=== PATIENT | female | born 1965 | race Caucasian/White ===

== ENCOUNTER 2017-11-02 07:58 | Emergency (ER) | END 2017-11-02 11:56 | disposition home or self-care (01) ==

== ENCOUNTER 2018-01-14 04:52 | Emergency (ER) | END 2018-01-14 13:35 | disposition short-term general hospital (02) ==

== ENCOUNTER 2018-07-15 13:59 | Inpatient (IN) | payer OTHER ==
[~2018-07-15] VITALS: Ht 170.2 cm; Wt 152.5 kg
[~2018-07-15 13:59] MED LIST: ALBU8.5H8 INH; AMLO-147 PO; AZIT250T13 PO; BENZ-6 PO; CARI350T29 PO; LEVO50TA7 PO; LISI1TAB6 PO; LORA1TAB PO; METF-849 PO; [UNRECOGNIZED DRUG - CODE] PO
[2018-07-15] MEDS ORDERED: SOD CHLORIDE 0.9% 1,000 ML IV STA (14:05)
[2018-07-15] MEDS ORDERED: DILTIAZEM 30 MG TAB PO ONE (14:30)
[2018-07-15] MEDS ORDERED: DILTIAZEM 25 MG INJ IV ONE (14:30)
[2018-07-15] MEDS ORDERED: LORA1TAB PO (15:19)
[2018-07-15] MEDS ORDERED: LEVO50TA7 PO (15:19)
[2018-07-15] MEDS ORDERED: CARI350T29 PO (15:20)
[2018-07-15] MEDS ORDERED: TRAM50TA PO (15:20)
[2018-07-15] MEDS ORDERED: METF500T24 PO (15:21)
[2018-07-15] MEDS ORDERED: AMLO-147 PO (15:21)
[2018-07-15] MEDS ORDERED: LISI1TAB6 PO (15:22)
[2018-07-15] MEDS ORDERED: RANI300T PO (15:23)
[2018-07-15] MEDS ORDERED: HYDR-4012 PO (15:24)
[2018-07-15] MEDS ORDERED: IBUP-1542 PO (15:24)
[2018-07-15] MEDS ORDERED: MAGNESIUM SULFATE 2 GM/50 ML 50 ML IVPB ONE (16:30)
[2018-07-15] MEDS ORDERED: POTASSIUM CHLORIDE (SR) 20 MEQ TAB PO STA (17:39)
--- NOTE | 2018-07-15 18:05 | ERD ---
ER Documentation Chief Complaint Chief Complaint biba, pt c/o flu like s/sx; EMS noted new onset afib on monitor- denies CP HPI Patient is a 53-year-old female with diabetes and high blood pressure who presents with diarrhea. The patient was brought in by ambulance. She has had a diarrhea for about 1 week. She has had falls. She has new onset atrial fibrillation by paramedics. She is supposedly taking Soma. Blood sugar was 180. She feels like she lost her balance which is why she fell. ROS All systems reviewed and are negative except as per history of present illness. Medications Home Meds Reported Medications Hydrocodone/Acetaminophen ([place] 7.5-325 Tablet) 1 Each Tablet, 1 EACH PO QID PRN for NEEDED, TAB 07/15/18 Ibuprofen* (Ibuprofen*) 600 Mg Tablet, 600 MG PO Q6H, TAB 07/15/18 Ranitidine Hcl* (Ranitidine Hcl*) 300 Mg Tablet, 300 MG PO HS, #30 TAB 07/15/18 Lisinopril/Hydrochlorothiazide (Lisinopril-Hctz 20-12.5 mg Tab) 1 Each Tablet, 1 EACH PO BID, TAB 07/15/18 Amlodipine Besylate* (Amlodipine Besylate*) 10 Mg Tablet, 10 MG PO DAILY, #30 TAB 07/15/18 Metformin Hcl* (Metformin Hcl*) 500 Mg Tablet, 500 MG PO WITH MEALS BEDTIME, #90 TAB 07/15/18 Tramadol Hcl* (Ultram*) 50 Mg Tablet, 50 MG PO Q6H PRN for PAIN, TAB 07/15/18 Carisoprodol* (Carisoprodol*) 350 Mg Tablet, 350 MG PO QID PRN for MUSCLE SPASM S, TAB 07/15/18 Lorazepam* (Lorazepam*) 1 Mg Tablet, 1 MG PO BID PRN for ANXIETY, #30 TAB 07/15/18 Levothyroxine Sodium* (Levothyroxine Sodium*) 50 Mcg Tablet, 50 MCG PO BEFORE BREAKFAST, #30 TAB 07/15/18 Discontinued Reported Medications Carisoprodol* (Carisoprodol*) 350 Mg Tablet, 350 MG PO Q8 PRN for MUSCLE SPASMS, TAB 11/02/17 Hydrocodone/Ibuprofen (Hydrocodone-Ibuprofen 7.5-200) 1 Each Tablet, 1 TAB PO Q6 PRN for SEVERE PAIN LEVEL 7-10 11/02/17 Lorazepam* (Lorazepam*) 1 Mg Tablet, 1 MG PO BID PRN for ANXIETY, #30 TAB 11/02/17 Metformin* (Glucophage*) 500 Mg Tab, 500 MG PO WITH MEALS, #90 TAB 11/02/17 Levothyroxine Sodium* (Levothyroxine Sodium*) 50 Mcg Tablet, 50 MCG PO BEFORE BREAKFAST, #30 TAB 11/02/17 Lisinopril/Hydrochlorothiazide (Lisinopril-Hctz 20-12.5 mg Tab) 1 Each Tablet, 2 TAB PO DAILY 11/02/17 Amlodipine Besylate* (Amlodipine Besylate*) 10 Mg Tablet, 10 MG PO DAILY, #30 TAB 11/02/17 Discontinued Scripts Azithromycin* (Azithromycin*) 250 Mg Tablet, 250 MG PO DAILY, #4 TAB Prov:SHARA DOWNS MD 11/02/17 Albuterol Sulfate* (Proair HFA*) 8.5 Gm Hfa.aer.ad, 2 PUFF INH Q6H PRN for WHEEZING AND SOB, #1 INHALER Prov:SHARA DONWS MD 11/02/17 Benzonatate* (Tessalon Perle*) 100 Mg Capsule, 100 MG PO TID PRN for COUGH, #12 CAP Prov:SHARA DOWNS MD 11/02/17 Allergies Allergies: Coded Allergies: No Known Allergies (Unverified Allergy, Unknown, 07/15/18) PMhx/Soc History of Surgery: Yes (Rt wrist, Rt elbow) Anesthesia Reaction: No Hx Neurological Disorder: No (chronic back pain, ) Hx Respiratory Disorders: Yes (bronchitis) Hx Cardiac Disorders: Yes (HTN) Hx Psychiatric Problems: No (anxiety) Hx Miscellaneous Medical Probl: Yes (DM, Hypothyroidism, old back fracture, morbid obese, muscle spasms) Hx Alcohol Use: Yes (Occasionally) Hx Substance Use: No Hx Tobacco Use: No Smoking Status: Never smoker FmHx Family History: diabetes Physical Exam Vitals Vital Signs Date Temp Pulse Resp B/P (MAP) Pulse Ox O2 O2 Flow FiO2 Time Delivery Rate 07/15/18 93 22 144/107 99 Room Air 17:00 (119) 07/15/18 82 15 132/72 99 Room Air 16:30 (92) 07/15/18 84 17 125/88 99 Room Air 16:00 (100) 07/15/18 95 17 103/61 99 Room Air 15:36 (75) 07/15/18 97 17 173/108 99 Room Air 15:00 (129) 07/15/18 Nasal 2 14:38 Cannula 07/15/18 101 20 135/108 99 Room Air 14:32 (117) 07/15/18 97.9 108 24 140/123 98 14:14 (129) Physical Exam Const: No acute distress Head: Atraumatic Eyes: Normal Conjunctiva ENT: Normal External Ears, Nose and Mouth. Neck: Full range of motion. No meningismus. Resp: Clear to auscultation bilaterally Cardio: Regular rate and rhythm, no murmurs Abd: Soft, non tender, non distended. Normal bowel sounds Skin: Abrasions to knees Back: No midline or flank tenderness Ext: No cyanosis, or edema Neur: Awake but confused, moving all 4 extremities Result Diagram: 07/15/18 1445 07/15/18 1445 Results 24 hrs Laboratory Tests Test 07/15/18 14:35 07/15/18 14:45 Urine Opiates Screen Positive Urine Barbiturates Negative Urine Amphetamines Screen Negative Urine Benzodiazepines Screen Negative Urine Cocaine Screen Negative Urine Cannabinoids Negative White Blood Count 19.5 10^3/ul Red Blood Count 4.42 10^6/ul Hemoglobin 13.0 g/dl Hematocrit 34.2 % Mean Corpuscular Volume 77.4 fl Mean Corpuscular Hemoglobin 29.4 pg Mean Corpuscular Hemoglobin Concent 38.0 g/dl Red Cell Distribution Width 12.3 % Platelet Count 416 10^3/UL Mean Platelet Volume 9.4 fl Immature Granulocytes % 1.200 % Neutrophils % % Segmented Neutrophils % (Manual) 83 % Band Neutrophils % (Manual) 10 % Lymphocytes % % Lymphocytes % (Manual) 2 % Reactive Lymphocytes % (Manual) 2 % Monocytes % % Monocytes % (Manual) 3 % Eosinophils % % Basophils % % Nucleated Red Blood Cells % 0.1 /100WBC Immature Granulocytes # 0.240 10^3/ul Neutrophils # 10^3/ul Neutrophils # (Manual) 16.6 10^3/ul Band Neutrophils # 1.9 10^3/ul Lymphocytes (Manual) 0.3 10^3/ul Lymphocytes # 10^3/ul Reactive Lymphocytes # 0.3 10^3/ul Monocytes # 10^3/ul Monocytes # (Manual) 0.5 10^3/ul Eosinophils # 10^3/ul Basophils # 10^3/ul Nucleated Red Blood Cells # 10^3/ul Platelet Estimate NORMAL Prothrombin Time 13.2 Sec Prothrombin Time Ratio 1.0 INR International Normalized Ratio 0.99 Activated Partial Thromboplast Time 29.2 Sec Sodium Level 100 mmol/L Potassium Level 3.4 mmol/L Chloride Level 61 mmol/L Carbon Dioxide Level 21 mmol/L Anion Gap 18 Blood Urea Nitrogen 10 mg/dl Creatinine 0.57 mg/dl Est Glomerular Filtrat Rate mL/min > 60 mL/min Glucose Level 178 mg/dl Calcium Level 8.0 mg/dl Magnesium Level 0.7 mg/dl Total Bilirubin 0.4 mg/dl Direct Bilirubin 0.00 mg/dl Indirect Bilirubin 0.4 mg/dl Aspartate Amino Transf (AST/SGOT) 133 IU/L Alanine Aminotransferase (ALT/SGPT) 49 IU/L Alkaline Phosphatase 78 IU/L Troponin I < 0.012 ng/ml Total Protein 6.7 g/dl Albumin 3.9 g/dl Globulin 2.80 g/dl Albumin/Globulin Ratio 1.39 Thyroid Stimulating Hormone (TSH) 0.844 MIU/L Free Thyroxine 1.64 ng/dl Ethyl Alcohol Level < 10.0 mg/dl Current Medications Medications Dose Sig/Mildred Start Time Status Last (Trade) Ordered Route PRN Stop Time Admin Dose Reason Admin Sodium 1,000 ml @ Q1H STAT 07/15/18 DC 07/15/18 Chloride 1,000 mls/hr IV 14:05 14:23 07/15/18 15:04 Diltiazem 20 mg ONCE ONCE 07/15/18 DC 07/15/18 HCl IV 14:30 14:25 (Cardizem Iv) 07/15/18 14:31 Diltiazem 30 mg ONCE ONCE 07/15/18 DC 07/15/18 HCl PO 14:30 14:22 (Cardizem) 07/15/18 14:31 Magnesium 50 ml @ 25 ONCE ONCE 07/15/18 07/15/18 Sulfate mls/hr IVPB 16:30 16:19 07/15/18 18:29 Potassium 20 meq ONCE STAT 07/15/18 DC Chloride PO 17:39 (Klor-Con 20) 07/15/18 17:43 Procedures/MDM CT brain pending radiology read at this time. EKG read by me: Rate/Rhythm: Atrial fibrillation Intervals: Normal Impression: Atrial fibrillation at a regular rate Patient is a 53-year-old female who presents with new onset atrial fibrillation. On routine laboratory studies the patient was found to have severe hyponatremia at 100. She has low magnesium at 0.7 as well. She was given normal saline 1 L bolus prior to realizing the hyponatremia but we will fluid restrict from this point forward to avoid central pontine myelinolysis. She was given 2 g of magnesium IV. She will be admitted to the care of the panel team to the intensive care unit. Dr. Moctezuma from nephrology has come to see her as well. Critical Care: Time: 35 minutes excluding all billable proc edures. Treatments/Evaluations: Close monitoring and treatment of unstable vital signs, cardiorespiratory, and neurologic status, while maintaining tight balance of fluid, respiratory, and cardiac interventions. Departure Diagnosis: Primary Impression: Hyponatremia Additional Impressions: Altered mental status Altered mental status type: unspecified Qualified Codes: R41.82 - Altered mental status, unspecified Falls Encounter type: initial encounter Qualified Codes: W19.XXXA - Unspecified fall, initial encounter Condition: Critical STARR ELDER MD Jul 15, 2018 18:05
[2018-07-15] MEDS ORDERED: HYDROCODONE/APAP (5/325) TAB PO PRN (19:00)
[2018-07-15] MEDS ORDERED: ONDANSETRON 4 MG INJ IV PRN (19:00)
[2018-07-15] MEDS ORDERED: hydrALAzine 20 MG INJ IV PRN (19:00)
[2018-07-15] MEDS ORDERED: DOCUSATE SODIUM 100 MG CAP PO PRN (19:00)
[2018-07-15] MEDS ORDERED: DILTIAZEM-D5W 125MG/125ML DRIP 125 ML IV SCH (19:00)
[2018-07-15] MEDS ORDERED: MAGNESIUM HYDROXIDE 30ML CUP PO PRN (19:00)
[2018-07-15] MEDS ORDERED: morphine 2 MG INJ IV PRN (19:00)
[2018-07-15] MEDS ORDERED: NITROGLYCERIN (SL) 0.4 MG TAB SL PRN (19:00)
[2018-07-15] MEDS ORDERED: ALBUTEROL/IPRATROPIUM (NEB) 3 ML AMP HHN PRN (19:00)
[2018-07-15] MEDS ORDERED: NACL 0.9% 3 ML SYG IV SCH (19:00)
[2018-07-15 19:04] VITALS: PULSE 80
--- NOTE | 2018-07-15 19:10 | CONS ---
DATE OF ADMISSION: 07/15/2018 DATE OF CONSULTATION: TYPE OF CONSULTATION: Nephrology. REASON FOR CONSULTATION: Severe hyponatremia. PHYSICIAN REQUESTING CONSULTATION: Dr. Marsh HISTORY OF PRESENT ILLNESS: This is a 53-year-old female with a past medical history of hypertension , history of chronic pain secondary to arthritis, history of diabetes, history of anxiety disorder, h istory of hypothyroidism who presents to [facility] Emergency Room with lethargy, weakness. The patient states that over the past 1-1/2 weeks she has had severe nausea, vomiting with minimal o ral intake. The patient admits to fluid intake. The patient is also describing diarrhea during this time. The patient states she has had increased weakness and lethargy. As a result, she came into [facility] emergency room. Upon arrival, the patient was found to have AFib with rapid rate. The patient salazar d blood sugar of 180. The patient in the emergency room had laboratory data drawn which showed a sod ium of 100 mEq per liter, a white count of 19.5, and platelet count 416. Chest x-ray shows mild card iomegaly, clear lungs. A CT scan of the brain showed no acute intracranial hemorrhage and small-vess el ischemic changes and generalized volume loss. In the emergency room, the patient was given 1 lite r of normal saline. In terms of patient's renal history, the patient had no history of acute kidney injury. The patient has no prior history of hyponatremia. She understands it. The patient had previous laboratory data at [facility] that showed sodium levels ranging between 127-135 mEq per liter. As stated above, the patient during last week and a half has had poor oral p.o. intake, low solute intak e. Patient admits to drinking liquids. Admits to nausea, vomiting. Admits to diarrhea. PAST MEDICAL HISTORY: As stated above, history of hypertension, diabetes, history of chronic pain sy ndrome, history of arthritis, history of anxiety disorder, history of hypothyroidism. PAST SURGICAL HISTORY: Right wrist, right elbow. FAMILY HISTORY: No family history of kidney disease. SOCIAL HISTORY: Does not smoke. The medications have been reviewed. REVIEW OF SYSTEMS: A 14-point review of systems was conducted. Pertinent positives stated in the HP I, otherwise negative. PHYSICAL EXAMINATION: VITAL SIGNS: Blood pressure is 144/107, respirations 22, pulse 93, temperature 98.6. GENERAL: The patient is alert and oriented x3. HEENT: Head is normocephalic. The patient has noted erythema on bilateral cheeks. NECK: Supple. HEART: Tachycardic. LUNGS: Show diminished breath sounds at the base. ABDOMEN: Soft, obese. Mild tenderness to palpation. EXTREMITIES: Negative for clubbing, cyanosis. Nonpitting edema noted. DERMATOLOGIC: No rashes. NEUROLOGIC: Limited exam due to lack of cooperation, but no focal deficits. LABORATORY DATA: Shows white count 19.5, hemoglobin 13.0, platelet count 416. Sodium 139, potassium 3.4, pulse 61, BUN 10, creatinine 0.57, magnesium 0.7. CT scan, chest x-ray was reviewed. ASSESSMENT AND PLAN: This is a 53-year-old female who presents with: 1. Hyponatremia, possibly acute, possible chronic. Etiology may be multifactorial secondary to volu me depletion, polydipsia in conjunction with low solute intake, medications, i.e., hydrochlorothiazid e effect, angiotensin-converting enzyme inhibitor effect. The possibility of underlying syndrome of inappropriate antidiuretic hormone is also a consideration. Plan at this point would be to do a full evaluation. We will check urine sodium, urine osmolarity. Will check urine electrolytes, check ser um osmolarity, thyroid-stimulating hormone, a.m. cortisol level, uric acid level. The patient is sta tus post intravenous fluid 1 liter normal saline. Will repeat a stat basic metabolic profile. We wi ll monitor serial sodium levels q.2 hours to ensure correction no more than 8 to 12 mEq in a 24-hour period. If patient's sodium level should rapidly overcorrect, we will give the patient a course of D 5 water and DDAVP. We will monitor her closely. We will also correct underlying hypokalemia, which is a contributing factor to hyponatremia. 2. Hypokalemia. We will replete with potassium chloride. 3. Hypomagnesemia, replete with magnesium sulfate. 4. Lethargy, weakness, likely from hyponatremia. Continue to monitor. CT scan showed no evidence o f herniation. 5. Atrial fibrillation, possible new onset. Etiology may be due to electrolyte abnormalities, hypom agnesemia. Will correct underlying electrolyte abnormalities. Monitor closely. Check serial tropon ins. Check a two-dimensional echocardiogram. 6. Hypertension. Continue to monitor. Will defer any angiotensin-converting enzyme inhibitor or di uretics at this time. 7. Hypothyroidism. Continue Synthroid. 8. Chronic pain syndrome. Continue current pain regimen. 9. Anxiety disorder. Thank you, Dr. Marsh, for this interesting consult. It will be a pleasure to follow the patient with you throughout the hospital course. Dictated By: JULIUS LUCAS DO NR/NTS Conf#: [id number] DID#: [id number] CC: DMITRY MARSH;*EndCC*
--- NOTE | 2018-07-15 19:35 | HP ---
DATE OF ADMISSION: 07/15/2018 IDENTIFICATION: This is a 53-year-old female. CHIEF COMPLAINT: Vomiting, diarrhea, flu-like symptoms. HISTORY OF PRESENT ILLNESS: A 53-year-old female with past medical history of high blood pressure, diabetes, anxiety, low back pain, hip pain, asthma, hypertension who was brought in by EMS. The patient apparently had been having some diarrhea symptoms and vomiting off and on for the last week. She has also been feeling weak and had some falls. Some of the information is obtained from talking to the patient, but she is very lethargic, and the rest is obtained from the ER documentation. When she arrived, she was in atrial fibrillation with RVR and received diltiazem in the ER and her heart rate became rate controlled, but still in AFib. She also stated she has been taking Soma and lorazepam for the last 2 days, unknown dosages. She also has been taking ibuprofen and tramadol for chronic low back pain and hip pain. Denies any palpitations. No upper or lower GI bleeding. No chest pain or shortness of breath. She did say she ate some saltine crackers yesterday, but just became more weak. When she came in to the ER today, in addition to the AFib with RVR, she was also found with a very low sodium level of 100, and also magnesium level was very low at 0.7. She was given 1 liter normal saline IV fluid bolus and a call was made out to the renal doctor to come see the patient, given her severe hyponatremia. She was also found with elevated white blood cell count of 19.5. She also received magnesium supplementation in the ER x1 as well as potassium p.o. x1. PAST MEDICAL HISTORY: As above. ALLERGIES: NO KNOWN DRUG ALLERGIES. HOME MEDICATIONS: 1. Soma 350 mg q.i.d. p.r.n. 2. Amlodipine 10 mg daily. 3. Lisinopril/hydrochlorothiazide 1 tab b.i.d. 4. [place] 7.5/325 q.i.d. p.r.n. 5. Ibuprofen 600 mg q.6 hours. 6. Lorazepam 1 mg b.i.d. p.r.n. 7. Tramadol 50 mg q.6 p.r.n. 8. Ranitidine 300 mg at bedtime. 9. Levothyroxine 50 mcg every morning. 10. Metformin 500 mg twice a day. PAST SURGICAL HISTORY: She has had perirectal abscess surgery in the past and a tennis elbow surgery in the past. SOCIAL HISTORY: Former smoker. Denies any alcohol use or IV drug abuse. FAMILY HISTORY: Noncontributory. PHYSICAL EXAMINATION: VITAL SIGNS: Today, T-max 97.9, pulse 82 to 108, respirations 15 to 24, blood pressure is 103 to 173 systolic/61 to 108 diastolic, satting at 99% on 2 liters nasal cannula. GENERAL: The patient lying in bed, obese, quite lethargic, trying to answer questions when alert, in no acute distress. HEENT: Pupils equal, round, react to light. Extraocular muscles intact. NECK: Supple, no thyromegaly. LUNGS: Clear to auscultation bilaterally. CARDIOVASCULAR: S1, S2 heard. No rubs or gallops. ABDOMEN: Soft, nontender, nondistended. Normal bowel sounds. No rebound or guarding. MUSCULOSKELETAL: No lower extremity edema bilaterally. NEUROLOGIC: No focal deficits but lethargic. LABORATORIES: WBC 19.5, hemoglobin 13.0, hematocrit 34.2, platelets 416. Sodium 100, potassium 3.4, chloride 61, CO2 21, BUN 10, creatinine 0.57, glucose 178. LFTs appear to be normal. TSH is normal. Free T4 is normal. Positive opiates in her drug screen as well. Blood alcohol level appears to be a little bit elevated. Coags are normal. Head CT performed, shows no acute hemorrhages, infarcts or mass effect. Minimal chronic small-vessel ischemic changes, partially empty sella turcica, bilateral proptosis. Chest x-ray: Mild cardiomegaly. ASSESSMENT AND PLAN: 53-year-old female with recent use of Soma and lorazepam at home, coming in with diarrhea and vomiting symptoms with signs of severe hyponatremia, hypomagnesemia and atrial fibrillation with rapid ventricular response. 1. Severe hyponatremia along with low magnesium levels- Again, sodium is very low - 100. She did get 1 liter of normal saline intravenous fluid bolus in the ER. Pt had some diarrhea x 1 week prior to admit, but potassium in low nL range. Consider SIADH as well? - For now, we will admit the patient in the intensive care unit, hold home pain meds and anti-anxiety meds. - We will follow up renal recommendations- recommending checking sodium levels every 2 hours at least for the next 12 to 24 hours. We do not want to correct the sodium any faster than 10 to 12 mEq in the next 24 hours to avoid demyelination of the brain, so we will monitor her sodium levels very carefully with those very frequent basic metabolic profile blood checks. - follow up renal rec's regarding any further treatment, i.e., 3% normal saline or tolvaptan or other, - check TSH, A1c, lipid panel. - Consider physical therapy and occupational therapy consults as well. 2. Atrial fibrillation with rapid ventricular response. Again, she did receive diltiazem in the Emergency Room. For now, she appears to be rate controlled. - We will continue diltiazem drip to keep the heart rate less than 100. - We will get a cardiology consult. - Consider two-dimensional echocardiogram as well. - Replete the low magnesium per renal and cardiology recommendations. 3. History of hypertension. Blood pressure appears to be stable. - Continue to monitor for now. - Continue Norvasc and hydralazine p.r.n. 4. History of anxiety- We are holding her home Soma medicine, ibuprofen, p.o. lorazepam and Ultram. - Again, low-dose Ativan as needed 5. History of probable hypothyroidism. Thyroid panel appears to be normal. - Continue Synthroid at current dose. 6. History of low back pain and hip pain. - Again, physical therapy and occupational therapy consults. - Cautious use of pain medications at this time. 7. Gastrointestinal prophylaxis: H2 jacque. 8. Deep venous thrombosis prophylaxis: sequential compression devices for now. 9. History of asthma. Daryl p.r.n. Dictated By: DMITRY BENNETT/ALEX Conf#: [id number] DID#: [id number] DMOINIC
[2018-07-15 20:00] VITALS: BP 137/80; PULSE 102; PULSE 89; RESP 18; Ht 170.2 cm; Wt 152.5 kg
[2018-07-15] MEDS: INSULIN ASPART [NOVOLOG] 3 ML PEN SC SCH (20:57)
[2018-07-15 21:00] VITALS: BP 129/69; PULSE 91; RESP 23
[2018-07-15] MEDS ORDERED: NACL 3% 500 ML IV SCH (21:00)
[2018-07-15] MEDS: RANITIDINE 150 MG TAB PO SCH (21:02)
[2018-07-15] MEDS ORDERED: HYDROCODONE/APAP (5/325) TAB PO ONE (21:30)
[2018-07-15 22:00] VITALS: BP 124/75; PULSE 79; RESP 17
[2018-07-15 23:00] VITALS: BP 140/89; PULSE 90; RESP 19
[2018-07-16] VITALS (30 sets, daily range): BP systolic 93–174; BP diastolic 56–117; PULSE 78–104; RESP 13–35
[2018-07-16] MEDS: LORAZEPAM 2 MG INJ IV PRN ×2 (00:17→20:59)
[2018-07-16] MEDS: INSULIN ASPART [NOVOLOG] 3 ML PEN SC SCH ×6 (01:40→21:00)
[2018-07-16] MEDS ORDERED: ACCU-CHEK XX SCH (02:00)
[2018-07-16] MEDS ORDERED: morphine 4 MG/ML VIAL IV ONE (02:13)
[2018-07-16] MEDS ORDERED: POTASSIUM CHLORIDE 50 ML IVPB SCH (02:30)
[2018-07-16] MEDS: POTASSIUM CHLORIDE 100 ML IVPB SCH ×2 (03:45→06:40)
[2018-07-16] MEDS ORDERED: HYDROmorphONE 0.5 MG/0.5 ML SYG IV ONE (04:58)
[2018-07-16] MEDS ORDERED: LEVOTHYROXINE 50 MCG TAB PO SCH (07:00)
[2018-07-16] MEDS ORDERED: POTASSIUM CHLORIDE (SR) 20 MEQ TAB PO STA (07:37)
[2018-07-16] MEDS ORDERED: MAGNESIUM SULFATE 2 GM/50 ML 50 ML IVPB ONE (08:00)
--- NOTE | 2018-07-16 08:46 | PN ---
DATE: 07/16/2018 SUBJECTIVE: The patient overnight was placed on 3% sodium chloride. The patient had serial sodium l evels checked. Sodium levels have slowly been improving. The patient had no neurological symptoms. No hemoptysis, hematemesis or hematochezia. OBJECTIVE: VITAL SIGNS: Blood pressure is 108/90, respirations 17, pulse 93, temperature 97.2. I's and O's hav e been reviewed. HEENT: Head is normocephalic. NECK: Supple. HEART: Regular rate. LUNGS: Show diminished breath sounds at the base. ABDOMEN: Soft, nontender to palpation without rebound or guarding. EXTREMITIES: Negative for clubbing, cyanosis, no edema. DERMATOLOGIC: No rashes. MUSCULOSKELETAL: No joint effusion. NEUROLOGIC: No focal deficits. MEDICATIONS: Reviewed. LABORATORY DATA: Shows sodium 103, potassium 2.1, chloride 63, BUN is 9, creatinine 0.51, magnesium is 1.0, phosphorus is 8.3. Urinalysis shows a FENa less than 1%, a urine osmolarity 446 mOsm/L. ASSESSMENT AND PLAN: 1. Hypernatremia, possibly acute versus chronic. Etiology is likely multifactorial secondary to vol ume depletion, polydipsia in conjunction with low solute intake, medications, i.e. hydrochlorothiazid e effect, [place] inhibitor effect, and possible underlying SIADH due to chronic pain. The patient's uri ne studies did show a FENa less than 1% with suggestive prerenal etiology. However, the patient did not respond to IV fluids as initial sodium levels declined. The patient has been placed on 3% sodium chloride with a gradual correction of sodium levels. Plan is to continue 3% sodium chloride. Bala nue to monitor sodium levels q.2h. We will ensure correction no more than 8 to 12 mEq in a 24-hour p eriod. If the patient's sodium level should rapidly overcorrect, the patient will be given a course of D5 water and DDAVP. We will monitor closely. We will also correct underlying hypokalemia, which is a contributing factor to hypernatremia. 2. Hypokalemia. We will replete with potassium chloride. 3. Hypomagnesemia. We will replete with magnesium sulfate. 4. Lethargy, weakness, stable. Continue to monitor. CT scan was reviewed. 5. Atrial fibrillation. Etiology may be secondary to electrolyte abnormalities. Continue to correc t. Continue diltiazem drip as needed. 6. Hypertension. Continue to monitor blood pressure. 7. Hypothyroidism. Continue Synthroid. TSH level is within normal limits. 8. Chronic pain syndrome. Continue current pain regimen. 9. Anxiety disorder. Continue current medical management. Please note I spent over 30 minutes of critical care time with this patient. Dictated By: JULIUS LUCAS DO NR/NTS Conf#: [id number] DID#: [id number] CC: DMITRY MARSH; ELENA URENA MD;*EndCC*
[2018-07-16] MEDS: ACETAMINOPHEN 325 MG TAB PO PRN ×2 (08:47→14:49)
[2018-07-16] MEDS ORDERED: AMLODIPINE 10 MG TAB PO SCH (09:00)
--- NOTE | 2018-07-16 09:06 | PN ---
Date/Time of Note Date/Time of Note DATE: 07/16/18 TIME: 09:04 Assessment/Plan VTE Prophylaxis SCD applied (from Nsg): Yes Pharmacological prophylaxis: other Lines/Catheters IV Catheter Type (from Nrsg): Peripheral IV Assessment/Plan Hospital Course S: Patient more awake and alert today, asking for pain medications. Seen by [facility]ah anderson team yesterday. Did receive 3% normal saline last night for about 6-7 hours. Presently off of that now. Heart rate is rate controlled. Sodium is up to 105 today. Seen by renal team this morning. O: VS - see below PHYSICAL EXAMINATION: GENERAL: lying in bed, obese, more alert and less lethargic HEENT: Pupils equal, round, react to light. Extraocular muscles intact. NECK: Supple, no thyromegaly. LUNGS: Clear to auscultation bilaterally. CARDIOVASCULAR: S1, S2 heard. No rubs or gallops. ABDOMEN: Soft, nontender, nondistended. Normal bowel sounds. No rebound or guarding. MUSCULOSKELETAL: No lower extremity edema bilaterally. NEUROLOGIC: No focal deficits but lethargic. ASSESSMENT AND PLAN: 53-year-old female with recent use of Soma and lorazepam at home, coming in with diarrhea and vomiting symptoms with signs of severe hyponatremia, hypomagnesemia and atrial fibrillation with rapid ventricular response. 1. Severe hyponatremia along with low magnesium levels- Again, sodium on present was very low - 100. She did get 1 liter of normal saline intravenous fluid bolus in the ER. Sodium today is 105, again she did receive 3% normal saline for about 6 or 7 hours last night.per renal team, because is likely multifactorial secondary to volume depletion, polydipsia in conjunction with low solute intake, medications, i.e. hydrochlorothiazide effect, [place] inhibitor effect, and possible underlying SIADH due to chronic pain. Of note, pt had some diarrhea x 1 week prior to admit. -Continue care in the intensive care unit, hold home pain meds and anti- anxiety meds, follow-up renal recommendations and sodium levels every 2 hours (We do not want to correct the sodium any faster than 10 to 12 mEq in the next 24 hours to avoid demyelination of the brain) so we will monitor her sodium levels very carefully with those very frequent basic metabolic profile blood checks. - follow up renal rec's regarding any further treatment, including repeating low potassium magnesium levels today -Of note, her CK levels are also in the 4-5000 range, with signs of early rhabdo, continue any further IV fluids per renal recommendations -Follow-up TSH, A1c, lipid panel. - Consider physical therapy and occupational therapy consults as well. 2. Atrial fibrillation with rapid ventricular response - Again, she did receive diltiazem in the Emergency Room-and presently is rate controlled for now -Continue monitor heart rate for now -Follow-up recommendations from cardiology consult. -Follow-up two-dimensional echocardiogram as well. - Replete the low magnesium and potassium today per renal and cardiology recommendations. 3. History of hypertension. Blood pressure stable. - Continue to monitor for now. - Continue Norvasc and hydralazine p.r.n. 4. History of anxiety- We are holding her home Soma medicine, ibuprofen, p.o. lorazepam and Ultram. - Again, low-dose Ativan as needed 5. History of probable hypothyroidism. Thyroid panel appears to be normal. - Continue Synthroid at current dose. 6. History of low back pain and hip pain. - Again, physical therapy and occupational therapy consults. - Cautious use of pain medications at this time-we will apply icy hot medication patch for now as well as p.o. Tylenol as needed 7. Gastrointestinal prophylaxis: H2 jacque. 8. Deep venous thrombosis prophylaxis: sequential compression devices for now. 9. History of asthma. Daryl p.r.n. Critical care time spent in patient care today equals 45 minutes. Result Diagram: 07/16/18 0512 07/16/18 0800 Results 24hrs Laboratory Tests Test 07/15/18 14:35 07/15/18 14:45 07/15/18 19:05 07/15/18 19:07 Urine Opiates Screen Positive Urine Barbiturates Negative Urine Amphetamines Negative Screen Urine Negative Benzodiazepines Screen Urine Cocaine Screen Negative Urine Cannabinoids Negative White Blood Count 19.5 #H Red Blood Count 4.42 Hemoglobin 13.0 Hematocrit 34.2 L Mean Corpuscular 77.4 L Volume Mean Corpuscular 29.4 Hemoglobin Mean Corpuscular 38.0 H Hemoglobin Concent Red Cell 12.3 Distribution Width Platelet Count 416 #H Mean Platelet Volume 9.4 Immature 1.200 H Granulocytes % Neutrophils % Segmented 83 H Neutrophils % (Manual) Band Neutrophils % 10 H (Manual) Lymphocytes % Lymphocytes % 2 L (Manual) Reactive Lymphocytes 2 H % (Manual) Monocytes % Monocytes % (Manual) 3 Eosinophils % Basophils % Nucleated Red Blood 0.1 H Cells % Immature 0.240 H Granulocytes # Neutrophils # Neutrophils # 16.6 H (Manual) Band Neutrophils # 1.9 H Lymphocytes (Manual) 0.3 L Lymphocytes # Reactive Lymphocytes 0.3 H # Monocytes # Monocytes # (Manual) 0.5 Eosinophils # Basophils # Nucleated Red Blood Cells # Platelet Estimate NORMAL Prothrombin Time 13.2 Prothrombin Time 1.0 Ratio INR International 0.99 Normalized Ratio Activated 29.2 Partial Thromboplast Time Sodium Level 100 *L 99 *L Potassium Level 3.4 L 3.3 L Chloride Level 61 L 59 L Carbon Dioxide Level 21 22 Anion Gap 18 H 18 H Blood Urea Nitrogen 10 11 Creatinine 0.57 0.55 Est Glomerular > 60 > 60 Filtrat Rate mL/min Glucose Level 178 130 # Calcium Level 8.0 L 8.3 L Magnesium Level 0.7 *L Total Bilirubin 0.4 Direct Bilirubin 0.00 Indirect Bilirubin 0.4 Aspartate Amino 133 H Transf (AST/SGOT) Alanine 49 Aminotransferase (AL T/SGPT) Alkaline Phosphatase 78 Troponin I < 0.012 Total Protein 6.7 Albumin 3.9 Globulin 2.80 Albumin/Globulin 1.39 Ratio Thyroid Stimulating 0.844 Hormone (TSH) Free Thyroxine 1.64 1.50 Ethyl Alcohol Level < 10.0 H Hemoglobin A1c 6.1 H Osmolality 203 L Uric Acid 3.1 Test 07/15/18 20:57 07/15/18 20:58 07/15/18 22:13 07/15/18 23:05 Bedside Glucose 128 Sodium Level 101 *L 102 *L Potassium Level 3.3 L 3.3 L Chloride Level 61 L 61 L Carbon Dioxide Level 21 23 Anion Gap 19 H 18 H Blood Urea Nitrogen 10 10 Creatinine 0.51 0.56 Est Glomerular > 60 > 60 Filtrat Rate mL/min Glucose Level 119 107 Calcium Level 8.3 L 8.2 L Creatine Kinase 4624 H Creatine Kinase 2.7 Index Creatinine Kinase MB 124.00 H (Mass) Troponin I < 0.012 Urine Color YELLOW Urine Clarity CLEAR Urine pH 6.0 Urine Specific 1.014 Griffin Urine Ketones 1+ H Urine Nitrite NEGATIVE Urine Bilirubin NEGATIVE Urine Urobilinogen NEGATIVE Urine Leukocyte NEGATIVE Esterase Urine Microscopic 1 RBC Urine Microscopic 1 WBC Urine Hemoglobin 2+ H Urine Osmolality 446 Urine Random 62.27 Creatinine Urine Random Sodium 29 L Urine Glucose NEGATIVE Urine Total Protein 436.0 H Test 07/16/18 00:41 07/16/18 01:57 07/16/18 02:48 07/16/18 05:11 Sodium Level 101 *L 105 *L Potassium Level 3.0 L 3.0 L Chloride Level 60 L 64 L Carbon Dioxide Level 25 24 Anion Gap 16 H 17 H Blood Urea Nitrogen 10 9 Creatinine 0.56 0.53 Est Glomerular > 60 > 60 Filtrat Rate mL/min Glucose Level 98 94 Calcium Level 8.2 L 8.4 Bedside Glucose 113 103 Creatine Kinase 4798 H Creatine Kinase 2.7 Index Creatinine Kinase MB 131.00 H (Mass) Troponin I < 0.012 Test 07/16/18 05:12 07/16/18 05:13 07/16/18 08:00 07/16/18 08:53 White Blood Count 14.9 #H Red Blood Count 4.15 L Hemoglobin 12.1 Hematocrit 32.2 L Mean Corpuscular 77.4 L Volume Mean Corpuscular 29.1 Hemoglobin Mean Corpuscular 37.6 H Hemoglobin Concent Red Cell 12.2 Distribution Width Platelet Count 386 Mean Platelet Volume 9.0 Immature 0.900 H Granulocytes % Neutrophils % 87.3 H Lymphocytes % 5.4 L Monocytes % 5.4 Eosinophils % 0.8 Basophils % 0.2 Nucleated Red Blood 0.0 Cells % Immature 0.140 H Granulocytes # Neutrophils # 13.0 H Lymphocytes # 0.8 Monocytes # 0.8 Eosinophils # 0.1 Basophils # 0.0 Nucleated Red Blood 0.0 Cells # Hemoglobin A1c 6.2 H Creatine Kinase 5167 H Sodium Level 103 *L 105 *L Potassium Level 3.1 L 3.0 L Chloride Level 63 L 65 L Carbon Dioxide Level 25 26 Anion Gap 15 H 14 H Blood Urea Nitrogen 9 8 Creatinine 0.51 0.52 Est Glomerular > 60 > 60 Filtrat Rate mL/min Glucose Level 82 106 Calcium Level 8.3 L 8.3 L Phosphorus Level 2.5 Magnesium Level 1.0 L Triglycerides Level 100 Cholesterol Level 185 LDL Cholesterol, 105 Calculated HDL Cholesterol 60 Cholesterol/HDL 3.0 Ratio Thyroid Stimulating 0.660 Hormone (TSH) Bedside Glucose 102 Exam/Review of Systems Exam Vitals Vital Signs Date Temp Pulse Resp B/P (MAP) Pulse Ox O2 O2 Flow FiO2 Time Delivery Rate 07/16/18 83 17 108/90 98 06:15 (96) 07/16/18 97.2 Room Air 06:00 07/16/18 4.0 05:49 Intake and Output 07/15/18 07/15/18 07/16/18 1515:00 23:00 07:00 IntakeIntake Total 190 ml 250.0 ml OutputOutput Total 195 ml 1115 ml BalanceBalance -5 ml -865.0 ml Results Results 24hrs Laboratory Tests Test 07/15/18 14:35 07/15/18 14:45 07/15/18 19:05 07/15/18 19:07 Urine Opiates Screen Positive Urine Barbiturates Negative Urine Amphetamines Negative Screen Urine Negative Benzodiazepines Screen Urine Cocaine Screen Negative Urine Cannabinoids Negative White Blood Count 19.5 #H Red Blood Count 4.42 Hemoglobin 13.0 Hematocrit 34.2 L Mean Corpuscular 77.4 L Volume Mean Corpuscular 29.4 Hemoglobin Mean Corpuscular 38.0 H Hemoglobin Concent Red Cell 12.3 Distribution Width Platelet Count 416 #H Mean Platelet Volume 9.4 Immature 1.200 H Granulocytes % Neutrophils % Segmented 83 H Neutrophils % (Manual) Band Neutrophils % 10 H (Manual) Lymphocytes % Lymphocytes % 2 L (Manual) Reactive Lymphocytes 2 H % (Manual) Monocytes % Monocytes % (Manual) 3 Eosinophils % Basophils % Nucleated Red Blood 0.1 H Cells % Immature 0.240 H Granulocytes # Neutrophils # Neutrophils # 16.6 H (Manual) Band Neutrophils # 1.9 H Lymphocytes (Manual) 0.3 L Lymphocytes # Reactive Lymphocytes 0.3 H # Monocytes # Monocytes # (Manual) 0.5 Eosinophils # Basophils # Nucleated Red Blood Cells # Platelet Estimate NORMAL Prothrombin Time 13.2 Prothrombin Time 1.0 Ratio INR International 0.99 Normalized Ratio Activated 29.2 Partial Thromboplast Time Sodium Level 100 *L 99 *L Potassium Level 3.4 L 3.3 L Chloride Level 61 L 59 L Carbon Dioxide Level 21 22 Anion Gap 18 H 18 H Blood Urea Nitrogen 10 11 Creatinine 0.57 0.55 Est Glomerular > 60 > 60 Filtrat Rate mL/min Glucose Level 178 130 # Calcium Level 8.0 L 8.3 L Magnesium Level 0.7 *L Total Bilirubin 0.4 Direct Bilirubin 0.00 Indirect Bilirubin 0.4 Aspartate Amino 133 H Transf (AST/SGOT) Alanine 49 Aminotransferase (AL T/SGPT) Alkaline Phosphatase 78 Troponin I < 0.012 Total Protein 6.7 Albumin 3.9 Globulin 2.80 Albumin/Globulin 1.39 Ratio Thyroid Stimulating 0.844 Hormone (TSH) Free Thyroxine 1.64 1.50 Ethyl Alcohol Level < 10.0 H Hemoglobin A1c 6.1 H Osmolality 203 L Uric Acid 3.1 Test 07/15/18 20:57 07/15/18 20:58 07/15/18 22:13 07/15/18 23:05 Bedside Glucose 128 Sodium Level 101 *L 102 *L Potassium Level 3.3 L 3.3 L Chloride Level 61 L 61 L Carbon Dioxide Level 21 23 Anion Gap 19 H 18 H Blood Urea Nitrogen 10 10 Creatinine 0.51 0.56 Est Glomerular > 60 > 60 Filtrat Rate mL/min Glucose Level 119 107 Calcium Level 8.3 L 8.2 L Creatine Kinase 4624 H Creatine Kinase 2.7 Index Creatinine Kinase MB 124.00 H (Mass) Troponin I < 0.012 Urine Color YELLOW Urine Clarity CLEAR Urine pH 6.0 Urine Specific 1.014 Griffin Urine Ketones 1+ H Urine Nitrite NEGATIVE Urine Bilirubin NEGATIVE Urine Urobilinogen NEGATIVE Urine Leukocyte NEGATIVE Esterase Urine Microscopic 1 RBC Urine Microscopic 1 WBC Urine Hemoglobin 2+ H Urine Osmolality 446 Urine Random 62.27 Creatinine Urine Random Sodium 29 L Urine Glucose NEGATIVE Urine Total Protein 436.0 H Test 07/16/18 00:41 07/16/18 01:57 07/16/18 02:48 07/16/18 05:11 Sodium Level 101 *L 105 *L Potassium Level 3.0 L 3.0 L Chloride Level 60 L 64 L Carbon Dioxide Level 25 24 Anion Gap 16 H 17 H Blood Urea Nitrogen 10 9 Creatinine 0.56 0.53 Est Glomerular > 60 > 60 Filtrat Rate mL/min Glucose Level 98 94 Calcium Level 8.2 L 8.4 Bedside Glucose 113 103 Creatine Kinase 4798 H Creatine Kinase 2.7 Index Creatinine Kinase MB 131.00 H (Mass) Troponin I < 0.012 Test 07/16/18 05:12 07/16/18 05:13 07/16/18 08:00 07/16/18 08:53 White Blood Count 14.9 #H Red Blood Count 4.15 L Hemoglobin 12.1 Hematocrit 32.2 L Mean Corpuscular 77.4 L Volume Mean Corpuscular 29.1 Hemoglobin Mean Corpuscular 37.6 H Hemoglobin Concent Red Cell 12.2 Distribution Width Platelet Count 386 Mean Platelet Volume 9.0 Immature 0.900 H Granulocytes % Neutrophils % 87.3 H Lymphocytes % 5.4 L Monocytes % 5.4 Eosinophils % 0.8 Basophils % 0.2 Nucleated Red Blood 0.0 Cells % Immature 0.140 H Granulocytes # Neutrophils # 13.0 H Lymphocytes # 0.8 Monocytes # 0.8 Eosinophils # 0.1 Basophils # 0.0 Nucleated Red Blood 0.0 Cells # Hemoglobin A1c 6.2 H Creatine Kinase 5167 H Sodium Level 103 *L 105 *L Potassium Level 3.1 L 3.0 L Chloride Level 63 L 65 L Carbon Dioxide Level 25 26 Anion Gap 15 H 14 H Blood Urea Nitrogen 9 8 Creatinine 0.51 0.52 Est Glomerular > 60 > 60 Filtrat Rate mL/min Glucose Level 82 106 Calcium Level 8.3 L 8.3 L Phosphorus Level 2.5 Magnesium Level 1.0 L Triglycerides Level 100 Cholesterol Level 185 LDL Cholesterol, 105 Calculated HDL Cholesterol 60 Cholesterol/HDL 3.0 Ratio Thyroid Stimulating 0.660 Hormone (TSH) Bedside Glucose 102 Medications Medication Current Medications IV Flush (NS 3 ml) 3 ml PER PROTOCOL IV ; Start 07/15/18 at 19:00 Ondansetron HCl (Zofran Inj) 4 mg Q6H PRN IV NAUSEA/VOMITING; Start 07/15/18 at 19:00 Acetaminophen (Tylenol Tab) 650 mg Q6H PRN PO .PAIN 1-3 OR TEMP Last administered on 07/16/18at 08:47; Admin Dose 650 MG; Start 07/15/18 at 19:00 Docusate Sodium (Colace) 100 mg Q12H PRN PO .CONSTIPATION; Start 07/15/18 at 19:00 Magnesium Hydroxide (Milk Of Mag) 30 ml DAILY PRN PO .CONSTIPATION; Start 07/15/18 at 19:00 Lorazepam (Ativan) 0.5 mg Q6H PRN IV ANXIETY Last administered on 07/16/18at 00:17; Admin Dose 0.5 MG; Start 07/15/18 at 19:00 Albuterol/ Ipratropium (Duoneb) 3 ml Q4H RESP THERAPY PRN HHN SHORTNESS OF BREATH; Start 07/15/18 at 19:00 Hydralazine HCl (Apresoline) 10 mg Q6H PRN IV ELEVATED BLOOD PRESSURE; Start 07/15/18 at 19:00 Nitroglycerin (Nitroglycerin (Sl Tab) 0.4 Mg) 1 tab Q5M PRN SL ANGINA; Start 07/15/18 at 19:00 Diagnostic Test (Pha) (Accu-Chek) 1 ea 02 XX Last administered on 07/16/18at 02:14; Admin Dose 1 EA; Start 07/16/18 at 02:00 Insulin Aspart (Novolog Insulin Pen) NOVOLOG *MILD* ALGORI... Q4 SC ; Start 07/15/18 at 21:00 Amlodipine Besylate (Norvasc) 10 mg DAILY PO Last administered on 07/16/18at 08:47; Admin Dose 10 MG; Start 07/16/18 at 09:00 Levothyroxine Sodium (Synthroid) 50 mcg BEFORE BREAKFAST PO Last administered on 07/16/18at 06:40; Admin Dose 50 MCG; Start 07/16/18 at 07:00 Ranitidine HCl (Zantac) 300 mg HS PO Last administered on 07/15/18at 21:02; Admin Dose 300 MG; Start 07/15/18 at 21:00 Diltiazem HCl 125 ml @ 5 mls/hr TITRATE IV Last administered on 07/16/18at 04:26; Admin Dose 5 MLS/HR; Start 07/15/18 at 19:00 Magnesium Sulfate 50 ml @ 25 mls/hr ONCE ONCE IVPB Last administered on 07/16/18at 08:48; Admin Dose 25 MLS/HR; Start 07/16/18 at 08:00; Stop 07/16/18 at 09:59 DMITRY MARSH 15, 2019 09:06
[2018-07-16] MEDS: MENTHOL/METH SALICYLATE 30 GM OINT TOP SCH ×4 (10:18→21:23)
[2018-07-16] MEDS ORDERED: NACL 3% 500 ML IV SCH (12:00)
[2018-07-16] MEDS ORDERED: POTASSIUM CHLORIDE 100 ML IVPB ONE ×2 (13:00→15:30)
--- NOTE | 2018-07-16 17:05 | PDOCDIS ---
Discharge Instructions CONDITION [id number] Patient Condition: [id number] DMITRY Hollis Jul 16, 2018 17:05
--- NOTE | 2018-07-16 17:15 | DS ---
Date/Time of Note Date/Time of Note DATE: 07/16/18 TIME: 17:07 Discharge Summary Admission/Discharge Info Admit Date/Time Jul 15, 2018 at 16:10 Discharge Date/Time Discharge Diagnosis 1. Severe hyponatremia along with low magnesium levels- Again, sodium on pr esent was very low - 100. She did get 1 liter of normal saline intravenous fluid bolus in the ER. Sodium today is 105, again she did receive 3% normal saline for about 6 or 7 hours last night.per renal team, because is likely multifactorial secondary to volume depletion, polydipsia in conjunction with low solute intake, medications, i.e. hydrochlorothiazide effect, [place] inhibitor effect, and possible underlying SIADH due to chronic pain. Of note, pt had some diarrhea x 1 week prior to admit. -Continue care in the intensive care unit, hold home pain meds and anti- anxiety meds, follow-up renal recommendations and sodium levels every 2 hours (We do not want to correct the sodium any faster than 10 to 12 mEq in the next 24 hours to avoid demyelination of the brain) so we will monitor her sodium levels very carefully with those very frequent basic metabolic profile blood checks. - follow up renal rec's regarding any further treatment, including repeating low potassium magnesium levels today -Of note, her CK levels are also in the 4-5000 range, with signs of early rhabdo, continue any further IV fluids per renal recommendations -Follow-up TSH, A1c, lipid panel. - Consider physical therapy and occupational therapy consults as well. 2. Atrial fibrillation with rapid ventricular response - Again, she did receive diltiazem in the Emergency Room-and presently is rate controlled for now -Continue monitor heart rate for now -Follow-up recommendations from cardiology consult. -Follow-up two-dimensional echocardiogram as well. - Replete the low magnesium and potassium today per renal and cardiology recommendations. 3. History of hypertension. Blood pressure stable. - Continue to monitor for now. - Continue Norvasc and hydralazine p.r.n. 4. History of anxiety- We are holding her home Soma medicine, ibuprofen, p.o. lorazepam and Ultram. - Again, low-dose Ativan as needed 5. History of probable hypothyroidism. Thyroid panel appears to be normal. - Continue Synthroid at current dose. 6. History of low back pain and hip pain. - Again, physical therapy and occupational therapy consults. - Cautious use of pain medications at this time-we will apply icy hot medication patch for now as well as p.o. Tylenol as needed 7. History of asthma. Daryl lutz Patient Condition: Critical Procedures Head CT: IMPRESSION: 1. No acute intracranial hemorrhage, transcortical infarction or mass effect. 2. Minimal chronic small vessel ischemic changes. 3. Minimal generalized cerebral volume loss. 4. Partially empty sella turcica. 5. Bilateral proptosis. Hx of Present Illness 53-year-old female with past medical history of high blood pressure, diabetes, anxiety, low back pain, hip pain, asthma, hypertension who was brought in by EMS. The patient apparently had been having some diarrhea symptoms and vomiting off and on for the last week. She has also been feeling weak and had some falls. Some of the information is obtained from talking to the patient, but she is very lethargic, and the rest is obtained from the ER documentation. When she arrived, she was in atrial fibrillation with RVR and received diltiazem in the ER and her heart rate became rate controlled, but still in AFib. She also stated she has been taking Soma and lorazepam for the last 2 days, unknown dosages. She also has been taking ibuprofen and tramadol for chronic low back pain and hip pain. Denies any palpitations. No upper or lower GI bleeding. No chest pain or shortness of breath. She did say she ate some saltine crackers yesterday, but just became more weak. When she came in to the ER today, in addition to the AFib with RVR, she was also found with a very low sodium level of 100, and also magnesium level was very low at 0.7. She was given 1 liter normal saline IV fluid bolus and a call was made out to the renal doctor to come see the patient, given her severe hyponatremia. She was also found with elevated white blood cell count of 19.5. She also received magnesium supplementation in the ER x1 as well as potassium p.o. x1. Hospital Course Patient was admitted to the intensive care unit. As stated above she initially got 1 L normal saline in the ER. Her sodium levels were checked very fr equently, every 2 hours per renal recommendations. She did receive magnesium repletion as well. Her heart rate stabilized and was rate controlled. Diltiazem drip was stopped afterwards. After recheck early on in admission, her sodium levels were still low so the decision was made to give her 3% normal saline for a few hours, sodium levels continue to be checked on the day of di scharge it was slowly improving at the rate recommended by renal team. Patient became more alert, she was having some pain symptoms and was given cautious use of pain medication since she does take many different pain medications and antianxiety medicines at home. Given her lethargy again this was cautiously initiated. She became more alert, vital signs became more stable, sodium levels were still low but again slowly trending upward at the correct rate by the time of discharge. After getting clearance from the sales development consultant teams patient will be transferred over to her insured hospital to continue intensive care unit care in present condition. See printed medical reconciliation sheet for current list of active inpatient medications. Home Meds Reported Medications Hydrocodone/Acetaminophen ([place] 7.5-325 Tablet) 1 Each Tablet, 1 EACH PO QID PRN for NEEDED, TAB 07/15/18 Ibuprofen* (Ibuprofen*) 600 Mg Tablet, 600 MG PO Q6H, TAB 07/15/18 Ranitidine Hcl* (Ranitidine Hcl*) 300 Mg Tablet, 300 MG PO HS, #30 TAB 07/15/18 Lisinopril/Hydrochlorothiazide (Lisinopril-Hctz 20-12.5 mg Tab) 1 Each Tablet, 1 EACH PO BID, TAB 07/15/18 Amlodipine Besylate* (Amlodipine Besylate*) 10 Mg Tablet, 10 MG PO DAILY, #30 TAB 07/15/18 Metformin Hcl* (Metformin Hcl*) 500 Mg Tablet, 500 MG PO WITH MEALS BEDTIME, #90 TAB 07/15/18 Tramadol Hcl* (Ultram*) 50 Mg Tablet, 50 MG PO Q6H PRN for PAIN, TAB 07/15/18 Carisoprodol* (Carisoprodol*) 350 Mg Tablet, 350 MG PO QID PRN for MUSCLE SPASMS, TAB 07/15/18 Lorazepam* (Lorazepam*) 1 Mg Tablet, 1 MG PO BID PRN for ANXIETY, #30 TAB 07/15/18 Levothyroxine Sodium* (Levothyroxine Sodium*) 50 Mcg Tablet, 50 MCG PO BEFORE BREAKFAST, #30 TAB 3/14/19 Discontinued Reported Medications Carisoprodol* (Carisoprodol*) 350 Mg Tablet, 350 MG PO Q8 PRN for MUSCLE SPASMS, TAB 11/02/17 Hydrocodone/Ibuprofen (Hydrocodone-Ibuprofen 7.5-200) 1 Each Tablet, 1 TAB PO Q6 PRN for SEVERE PAIN LEVEL 7-10 11/02/17 Lorazepam* (Lorazepam*) 1 Mg Tablet, 1 MG PO BID PRN for ANXIETY, #30 TAB 11/02/17 Metformin* (Glucophage*) 500 Mg Tab, 500 MG PO WITH MEALS, #90 TAB 11/02/17 Levothyroxine Sodium* (Levothyroxine Sodium*) 50 Mcg Tablet, 50 MCG PO BEFORE BREAKFAST, #30 TAB 11/02/17 Lisinopril/Hydrochlorothiazide (Lisinopril-Hctz 20-12.5 mg Tab) 1 Each Tablet, 2 TAB PO DAILY 11/02/17 Amlodipine Besylate* (Amlodipine Besylate*) 10 Mg Tablet, 10 MG PO DAILY, #30 TAB 11/02/17 Discontinued Scripts Azithromycin* (Azithromycin*) 250 Mg Tablet, 250 MG PO DAILY, #4 TAB Prov:SHARA DOWNS MD 11/02/17 Albuterol Sulfate* (Proair HFA*) 8.5 Gm Hfa.aer.ad, 2 PUFF INH Q6H PRN for WHEEZING AND SOB, #1 INHALER Prov:SHARA DOWNS MD 11/02/17 Benzonatate* (Tessalon Perle*) 100 Mg Capsule, 100 MG PO TID PRN for COUGH, #12 CAP Prov:SHARA DOWNS MD 11/02/17 Primary Care Provider Not On Staff Doctor Time spent on discharge: > 30 minutes Pending Labs Laboratory Tests Test 07/15/18 19:05 07/15/18 19:07 07/15/18 20:57 07/15/18 20:58 Sodium Level 99 101 mmol/L (135-144 mmol/L (135-14 ) 4) Potassium 3.3 3.3 Level mmol/L (3.5-5.1 mmol/L (3.5-5. ) 1) Chloride Level 59 61 mmol/L (97-110) mmol/L (97-110 ) Carbon Dioxide 22 21 Level mmol/L (21-31) mmol/L (21-31) Anion Gap 18 (5-13) 19 (5-13) Blood Urea 11 mg/dl (7-20) 10 Nitrogen mg/dl (7-20) Creatinine 0.55 0.51 mg/dl (0.44-1.0 mg/dl (0.44-1. 0) 00) Est Glomerular > 60 > 60 Filtrat mL/min (>60) mL/min (>60) Rate mL/min Glucose Level 130 119 mg/dl (70-220) mg/dl (70-220) Hemoglobin A1c 6.1 % (0-5.9) Calcium Level 8.3 8.3 mg/dl (8.4-10.2 mg/dl (8.4-10. ) 2) Free Thyroxine 1.50 ng/dl (0.64-1.7 9) Osmolality 203 mOsm/kg (280-2 95) Uric Acid 3.1 mg/dl (3.1-7.9 ) Bedside 128 Glucose mg/dL (70-220) Creatine 4624 Kinase IU/L (23-200) Creatine Kinase 2.7 Index Creatinine 124.00 Kinase MB ng/ml (0.0-2.4 (Mass) ) Troponin I < 0.012 ng/ml (0.000-0 .120) Test 07/15/18 22:13 07/15/18 23:05 07/16/18 00:41 07/16/18 01:57 Sodium Level 102 101 mmol/L (135-144 mmol/L (135-14 ) 4) Potassium 3.3 3.0 Level mmol/L (3.5-5.1 mmol/L (3.5-5. ) 1) Chloride Level 61 60 mmol/L (97-110) mmol/L (97-110 ) Carbon Dioxide 23 25 Level mmol/L (21-31) mmol/L (21-31) Anion Gap 18 (5-13) 16 (5-13) Blood Urea 10 mg/dl (7-20) 10 Nitrogen mg/dl (7-20) Creatinine 0.56 0.56 mg/dl (0.44-1.0 mg/dl (0.44-1. 0) 00) Est Glomerular > 60 > 60 Filtrat mL/min (>60) mL/min (>60) Rate mL/min Glucose Level 107 98 mg/dl (70-220) mg/dl (70-220) Calcium Level 8.2 8.2 mg/dl (8.4-10.2 mg/dl (8.4-10. ) 2) Urine Color YELLOW (YELLOW ) Urine Clarity CLEAR (CLEAR) Urine pH 6.0 (5.0-9.0) Urine Specific 1.014 (1.003-1 [place] .030) Urine Ketones 1+ mg/dL (NEGATIV E) Urine Nitrite NEGATIVE mg/dL (NEGATIV E) Urine NEGATIVE Bilirubin mg/dL (NEGATIV E) Urine NEGATIVE Urobilinogen mg/dL (NEGATIV E) Urine Leukocyte NEGATIVE Uziel/u Esterase l Urine 1 /HPF (0-5) Microscopic RBC Urine 1 /HPF (0-5) Microscopic WBC Urine 2+ Hemoglobin mg/dL (NEGATIV E) Urine 446 Osmolality mOsm/kg (250-1 200) Urine Random 62.27 Creatinine mg/dl (20-320) Urine Random 29 Sodium mmol/L (30-90) Urine Glucose NEGATIVE mg/dL (NEGATIV E) Urine Total 436.0 Protein mg/dl (0.0-11. 9) Bedside 113 Glucose mg/dL (70-220) Test 07/16/18 02:48 07/16/18 05:11 07/16/18 05:12 07/16/18 05:13 Sodium Level 105 103 mmol/L (135-144 mmol/L (135-14 ) 4) Potassium 3.0 3.1 Level mmol/L (3.5-5.1 mmol/L (3.5-5. ) 1) Chloride Level 64 63 mmol/L (97-110) mmol/L (97-110 ) Carbon Dioxide 24 25 Level mmol/L (21-31) mmol/L (21-31) Anion Gap 17 (5-13) 15 (5-13) Blood Urea 9 mg/dl (7-20) 9 mg/dl (7-20) Nitrogen Creatinine 0.53 0.51 mg/dl (0.44-1.0 mg/dl (0.44-1. 0) 00) Est Glomerular > 60 > 60 Filtrat mL/min (>60) mL/min (>60) Rate mL/min Glucose Level 94 82 mg/dl (70-220) mg/dl (70-220) Calcium Level 8.4 8.3 mg/dl (8.4-10.2 mg/dl (8.4-10. ) 2) Creatine 4798 5167 Kinase IU/L (23-200) IU/L (23-200) Creatine Kinase 2.7 Index Creatinine 131.00 Kinase MB ng/ml (0.0-2.4) (Mass) Troponin I < 0.012 ng/ml (0.000-0. 120) Bedside 103 Glucose mg/dL (70-220) White Blood 14.9 Count 10^3/ul (4.8-1 0.8) Red Blood 4.15 Count 10^6/ul (4.20- 5.40) Hemoglobin 12.1 g/dl (12.0-16. 0) Hematocrit 32.2 % (37.0-47.0) Mean 77.4 Corpuscular fl (82.0-101.0 Volume ) Mean 29.1 Corpuscular pg (29.0-33.0) Hemoglobin Mean 37.6 Corpuscular g/dl (32.0-37. Hemoglobin Conc 0) ent Red Cell 12.2 Distribution % (11.5-14.5) Width Platelet Count 386 10^3/UL (140-4 15) Mean Platelet 9.0 Volume fl (7.4-10.4) Immature 0.900 Granulocytes % % (0.001-0.429 ) Neutrophils % 87.3 % (39.0-77.0) Lymphocytes % 5.4 % (15.0-51.0) Monocytes % 5.4 % (0.0-11.0) Eosinophils % 0.8 % (0.0-7.0) Basophils % 0.2 % (0.0-2.0) Nucleated Red 0.0 Blood Cells % /100WBC (0.0-0 .0) Immature 0.140 Granulocytes # 10^3/ul (0.0-0 .031) Neutrophils # 13.0 10^3/ul (1.6-7 .5) Lymphocytes # 0.8 10^3/ul (0.8-2 .9) Monocytes # 0.8 10^3/ul (0.3-0 .9) Eosinophils # 0.1 10^3/ul (0.0-0 .5) Basophils # 0.0 10^3/ul (0.0-0 .1) Nucleated Red 0.0 Blood Cells # 10^3/ul (0.0-0 .0) Hemoglobin A1c 6.2 % (0-5.9) Phosphorus 2.5 Level mg/dl (2.5-4.9 ) Magnesium 1.0 Level mg/dl (1.7-2.5 ) Triglycerides 100 Level mg/dl (0-149) Cholesterol 185 Level mg/dl (100-200 ) LDL 105 mg/dl Cholesterol, Calculated HDL 60 Cholesterol mg/dl (37-92) Cholesterol/HDL 3.0 RATIO Ratio Thyroid 0.660 Stimulating MIU/L (0.465-4 Hormone (TSH) .680) Test 07/16/18 08:00 07/16/18 08:53 07/16/18 10:14 07/16/18 11:54 Sodium Level 105 105 104 mmol/L (135-144 mmol/L (135-14 mmol/L (135-14 ) 4) 4) Potassium 3.0 3.2 3.2 Level mmol/L (3.5-5.1 mmol/L (3.5-5. mmol/L (3.5-5. ) 1) 1) Chloride Level 65 66 66 mmol/L (97-110) mmol/L (97-110 mmol/L (97-110 ) ) Carbon Dioxide 26 24 25 Level mmol/L (21-31) mmol/L (21-31) mmol/L (21-31) Anion Gap 14 (5-13) 15 (5-13) 13 (5-13) Blood Urea 8 mg/dl (7-20) 8 mg/dl (7-20) 8 mg/dl (7-20) Nitrogen Creatinine 0.52 0.53 0.53 mg/dl (0.44-1.0 mg/dl (0.44-1. mg/dl (0.44-1. 0) 00) 00) Est Glomerular > 60 > 60 > 60 Filtrat mL/min (>60) mL/min (>60) mL/min (>60) Rate mL/min Glucose Level 106 103 107 mg/dl (70-220) mg/dl (70-220) mg/dl (70-220) Calcium Level 8.3 8.3 8.4 mg/dl (8.4-10.2 mg/dl (8.4-10. mg/dl (8.4-10. ) 2) 2) Bedside 102 Glucose mg/dL (70-220) Test 07/16/18 12:43 07/16/18 12:54 07/16/18 14:11 07/16/18 16:41 Bedside 111 96 Glucose mg/dL (70-220) mg/dL (70-220) Urine Color YELLOW (YELLOW ) Urine Clarity CLEAR (CLEAR) Urine pH 7.0 (5.0-9.0) Urine Specific 1.013 (1.003-1 [place] .030) Urine Ketones 2+ mg/dL (NEGATIV E) Urine Nitrite NEGATIVE mg/dL (NEGATIV E) Urine NEGATIVE Bilirubin mg/dL (NEGATIV E) Urine 1+ Urobilinogen mg/dL (NEGATIV E) Urine Leukocyte NEGATIVE Uziel/u Esterase l Urine > 182 Microscopic /HPF (0-5) RBC Urine 7 /HPF (0-5) Microscopic WBC Urine Bacteria FEW /HPF (NONE SEEN) Urine 3+ Hemoglobin mg/dL (NEGATIV E) Urine 387 Osmolality mOsm/kg (250-1 200) Urine Random 62 Sodium mmol/L (30-90) Urine Glucose NEGATIVE mg/dL (NEGATIV E) Urine Total 2+ Protein mg/dl (NEGATIV E) Sodium Level 106 mmol/L (135-14 4) Potassium 3.3 Level mmol/L (3.5-5. 1) Chloride Level 67 mmol/L (97-110 ) Carbon Dioxide 25 Level mmol/L (21-31) Anion Gap 14 (5-13) Blood Urea 8 mg/dl (7-20) Nitrogen Creatinine 0.54 mg/dl (0.44-1. 00) Est Glomerular > 60 Filtrat mL/min (>60) Rate mL/min Glucose Level 102 mg/dl (70-220) Calcium Level 8.5 mg/dl (8.4-10. 2) DMITRY MARSH Jul 16, 2018 17:15
[2018-07-16] MEDS ORDERED: HYDROCODONE/APAP (5/325) TAB PO ONE (20:30)
[2018-07-16] MEDS: RANITIDINE 150 MG TAB PO SCH (21:23)
[2018-07-17] VITALS: BP 134/88; RESP 19
== END 2018-07-17 00:05 | disposition short-term general hospital (02) | DRG 641 ==
LOC: E/R 13:59 → ICU 16:10
PROVIDERS: ADMIT Hospitalist; ATTEND Hospitalist
DX: E87.1 Hypo-osmolality and hyponatremia (principal); Z68.43 Body mass index [BMI] 50.0-59.9, adult; E66.01 Morbid (severe) obesity due to excess calories; E83.42 Hypomagnesemia; I48.0 Paroxysmal atrial fibrillation; E11.9 Type 2 diabetes mellitus without complications; E03.9 Hypothyroidism, unspecified; I10 Essential (primary) hypertension; F41.9 Anxiety disorder, unspecified; E87.6 Hypokalemia; G89.4 Chronic pain syndrome; Z79.84 Long term (current) use of oral hypoglycemic drugs; Z87.891 Personal history of nicotine dependence
CPT/HCPCS: 36415; 70450; 71045; 80048; 80053; 80061; 80307; 81001; 81003; 82043; 82436; 82550; 82553; 82962; 83036; 83735; 83930; 83935; 84100; 84155; 84300; 84439; 84443; 84484; 84560; 85025; 85610; 85730; 87081; 93005; 96374; 97161; J1170; J1815; J2060; J2270; J3475; J3480; J7030